=== PATIENT | female | born 1955 | race Two or more races ===

== ENCOUNTER → 2021-05-28 10:27 | Outpatient (CLI) | payer OTHER | END | disposition home or self-care (01) | LOC: LAB 10:27 | PROVIDERS: ATTEND Radiology Diagnostic Radiology | DX: Z00.00 Encounter for general adult medical examination without abnormal findings (principal); M54.16 Radiculopathy, lumbar region ==

== ENCOUNTER 2021-05-28 12:29 | Outpatient (CLI) | payer OTHER | END 2021-05-28 12:35 | disposition home or self-care (01) | LOC: MRI 12:29 | PROVIDERS: ATTEND Internal Medicine Cardiovascular Disease | DX: M51.37 Other intervertebral disc degeneration, lumbosacral region (principal); M54.16 Radiculopathy, lumbar region | CPT/HCPCS: 72158; A9575; 72149 ==

== ENCOUNTER → 2022-06-08 | Outpatient (CLI) | payer OTHER ==
[~2022-06-08] MED LIST: DICLOFENAC POTA25 M1 PO; DICLOFENAC SODI75 MG PO
== END | disposition home or self-care (01) ==
LOC: MRI 12:28
PROVIDERS: ATTEND Emergency Medicine
DX: M54.12 Radiculopathy, cervical region (principal)
CPT/HCPCS: 72141

== ENCOUNTER 2022-10-10 13:24 | Emergency (ER) | payer OTHER ==
[~2022-10-10] VITALS: Ht 157.5 cm; Wt 56.2 kg
[2022-10-10] MEDS ORDERED: EZETIMIBE10 MG (13:48)
[2022-10-10] MEDS ORDERED: METAXALONE800 MG PO (19:10)
[2022-10-10] MEDS ORDERED: MEDROLPACK PO (19:10)
== END 2022-10-10 19:15 | disposition home or self-care (01) ==
LOC: ER 13:24
DX: M54.2 Cervicalgia (principal); M25.519 Pain in unspecified shoulder; M19.09 Primary osteoarthritis, other specified site; M62.838 Other muscle spasm; F41.9 Anxiety disorder, unspecified; M48.00 Spinal stenosis, site unspecified; M47.812 Spondylosis without myelopathy or radiculopathy, cervical region

== ENCOUNTER 2024-05-15 11:02 | Inpatient (IN) | payer OTHER ==
[~2024-05-15] VITALS: Ht 162.6 cm; Wt 56.2 kg
[~2024-05-15 11:02] MED LIST changes: +EZETIMIBE10 MG; +MEDROLPACK PO; +METAXALONE800 MG PO
[2024-05-15] MEDS ORDERED: LOSARTAN POTASS50 MG PO (11:34)
[2024-05-15] MEDS ORDERED: ATORVASTATIN CA10 MG PO (11:34)
--- NOTE | 2024-05-15 11:36 | NUR ---
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
[2024-05-15] MEDS ORDERED: ONDANSETRON HCL 2 MG/ML VIAL IV ONE (14:30)
[2024-05-15] MEDS ORDERED: MORPHINE SULFATE 4 MG/ML VIAL IV ONE (14:30)
[2024-05-15] MEDS ORDERED: FAMOTIDINE/PF 20 MG/2 ML VIAL IV ONE (14:30)
[2024-05-15] MEDS ORDERED: 0.9 % SODIUM CHLORIDE 500 ML IV ONE (14:30)
[2024-05-15 15:30] LABS: HEMATOCRIT 29.3 % (36.0-45.00); MEAN CORPUSCULAR HEMOGLOBIN 34.2 pg (27.00-32.0); MEAN CORPUSCULAR HGB CONC 34.2 g/dl (32.0-36.0); PLATELET COUNT 280 K/uL (150-450); RED BLOOD COUNT 2.93 M/uL (4.00-6.00); RED CELL DISTRIBUTION WIDTH 12.9 % (11.5-14.5)
[2024-05-15 15:38] LABS: PH,URINE 6.5 (5.0-8.0); URINE APPEARANCE Clear; URINE BILIRRUBIN Negative (NEGATIVE); URINE BLOOD Small; URINE COLOR Yellow; URINE GLUCOSE Negative (NEGATIVE); URINE KETONE Trace (NEGATIVE); URINE LEUKOCYTE Negative; URINE NITRATE Negative; URINE PROTEIN Negative (NEGATIVE); URINE UROBILINOGEN 0.2 E.U./dl
[2024-05-15 15:41] LABS: URINE BACTERIA 11.3 uL (0.0-1933)
[2024-05-15 15:46] LABS: URINE EPITHELIAL CELLS 0.7 uL (0.0-38.8); URINE WBC 1.6 uL (0.0-23.2)
--- NOTE | 2024-05-15 15:55 | NUR ---
PTE FEMENINA EVALUADA POR KRISTAL LIND. SE ORIENTA SOBRE ORDENES DE [place] REFIERE COMPRENDER. SE COLECTAN MUESTRAS DE LABORATORIOS Y SE CANALIZA VENA BAJO MEDIDAS ASEPTICAS. SE ADMINISTRAN MEDICAMENTOS, BAJO MEDIDAS ASEPTICAS. SE NOTIFICA A RADIOLOGIA CT PENDIENTE.
[2024-05-15 16:05] LABS: ALBUMIN 3.9 gm/dL (3.4-5.0); BILIRUBIN TOTAL 0.62 mg/dL (0.3-1.2); CALCIUM 9.3 mg/dL (8.5-10.1); CREATININE SERUM 0.79 mg/dL (0.55-1.02); GFR 71.74; GLOBULINA 4.7 G/DL (2.4-3.5); POTASSIUM 3.7 mEq/L (3.5-5.1); TOTAL PROTEIN 8.6 gm/dL (6.4-8.2)
[2024-05-15] MEDS ORDERED: PIPERACILLIN/TAZOBACTAM SODIUM 3.375 GM VIAL IV ONE ×2 (20:00→23:45)
[2024-05-16] MEDS ORDERED: DEXTROSE 5 %-0.45 % SOD CHLORD 1,000 ML IV SCH (00:30)
[2024-05-16] MEDS ORDERED: levoFLOXacin IN DEXTROSE 5 % 150 ML IV SCH ×2 (00:44→21:00)
[2024-05-16] MEDS ORDERED: FAMOTIDINE/PF 20 MG/2 ML VIAL IV SCH (00:45)
[2024-05-16] MEDS ORDERED: HYOSCYAMINE SULFATE 0.125 MG TAB.SUBL SL PRN (00:45)
[2024-05-16] MEDS ORDERED: METRONIDAZOLE/SODIUM CHLORIDE 100 ML IV SCH (01:00)
[2024-05-16 02:10] VITALS: BP 138/86
[2024-05-16 09:42] VITALS: BP 118/64; O2SAT 99
[2024-05-16 14:18] LABS: FOLIC ACID > 20.00 ng/ml (4.78-20)
[2024-05-16 18:40] VITALS: BP 131/66
[2024-05-17 01:00] VITALS: BP 104/55
[2024-05-17 07:03] LABS: TSH 2.83 uIU/mL (0.358-3.74)
[2024-05-17 09:00] VITALS: BP 122/70; O2SAT 98
[2024-05-17 10:37] LABS: ob POSITIVE (NEGATIVE)
[2024-05-17 12:36] LABS: FECAL LEUKOCYTES NEGATIVE (NEGATIVE); ob POSITIVE (NEGATIVE)
[2024-05-17 17:53] VITALS: BP 160/74; O2SAT 98
[2024-05-17] MEDS ORDERED: SIMETHICONE 125 MG CAPSULE PO SCH (20:01)
[2024-05-17] MEDS ORDERED: SODIUM CHLORIDE 0.45 % 1,000 ML IV SCH (20:15)
[2024-05-18 01:37] VITALS: BP 133/72
[2024-05-18 06:53] LABS: HEMATOCRIT 24.5 % (36.0-45.00); MEAN CELL VOLUME 100.1 fL (80.00-100.00); MEAN CORPUSCULAR HEMOGLOBIN 35.1 pg (27.00-32.0); PLATELET COUNT 224 K/uL (150-450); RED BLOOD COUNT 2.45 M/uL (4.00-6.00); RED CELL DISTRIBUTION WIDTH 12.9 % (11.5-14.5)
[2024-05-18 07:02] LABS: HEMOGLOBIN 8.6 g/dL (12.0-15.00)
[2024-05-18 07:14] LABS: ALBUMIN 3.2 gm/dL (3.4-5.0); BILIRUBIN TOTAL 0.41 mg/dL (0.3-1.2); CALCIUM 8.6 mg/dL (8.5-10.1); CREATININE SERUM 0.9 mg/dL (0.55-1.02); GFR 61.72; GLOBULINA 3.3 G/DL (2.4-3.5); POTASSIUM 3.9 mEq/L (3.5-5.1); TOTAL PROTEIN 6.5 gm/dL (6.4-8.2)
[2024-05-18] MEDS ORDERED: LOSARTAN POTASSIUM 50 MG TABLET PO SCH (09:00)
[2024-05-18] MEDS ORDERED: FAMOtidine 20 MG TABLET PO SCH (09:00)
[2024-05-18] MEDS ORDERED: LACTOBACILLUS ACIDOPHILUS 1 CAP CAP PO SCH (09:00)
[2024-05-18 09:51] VITALS: BP 127/68; O2SAT 97
[2024-05-18] MEDS ORDERED: PANTOPRAZOLE SODIUM 40 MG TABLET.DR PO SCH (17:00)
[2024-05-18 18:21] VITALS: BP 165/73; O2SAT 98
[2024-05-18] MEDS ORDERED: SOD FERRIC GLUC COMPLX/SUCROSE 62.5 MG in 0.9 % SODIUM CHLORIDE 50 ML IV SCH (18:25)
[2024-05-19 00:52] VITALS: BP 116/65; O2SAT 97
[2024-05-19 10:11] VITALS: BP 153/77; O2SAT 97
[2024-05-19 18:15] VITALS: BP 131/71
[2024-05-20 02:21] VITALS: BP 124/68
[2024-05-20 09:52] VITALS: BP 110/67; O2SAT 99
[2024-05-20 20:11] VITALS: BP 140/71
[2024-05-21 01:42] VITALS: BP 107/63
[2024-05-21 08:57] VITALS: BP 125/72
[2024-05-21] MEDS ORDERED: HYOSCYAMINE0.125 M1 SL (18:11)
[2024-05-21] MEDS ORDERED: LEVOFLOXACIN750 MG PO (18:11)
[2024-05-21] MEDS ORDERED: INTEGRA PLUS C1 EACH PO (18:12)
[2024-05-21] MEDS ORDERED: LOSARTAN POTASS50 MG PO (18:13)
[2024-05-21] MEDS ORDERED: PANTOPRAZOLE SO40 MG PO (18:14)
[2024-05-21] MEDS ORDERED: FAMOTIDINE20 MG PO (18:14)
[2024-05-21] MEDS ORDERED: SIMETHICONE125 M1 PO (18:15)
[2024-05-21] MEDS ORDERED: INTESTINEX680 M1 PO (18:15)
[2024-05-22] MEDS ORDERED: levoFLOXacin 750 MG TABLET PO SCH (09:00)
[2024-05-22] MEDS ORDERED: IRON FUM,PS/FOLIC/BCOMP,C NO.9 1 CAP CAPSULE PO SCH (09:00)
== END 2024-05-21 18:38 | disposition home or self-care (01) | DRG 392 ==
LOC: ER 11:02 → MEDJ 05-16 00:42
PROVIDERS: Nurse Practitioner Family; ADMIT Internal Medicine Cardiovascular Disease; ATTEND Internal Medicine Cardiovascular Disease
DX: K57.30 Diverticulosis of large intestine without perforation or abscess without bleeding (principal); K62.5 Hemorrhage of anus and rectum; K52.9 Noninfective gastroenteritis and colitis, unspecified; D64.9 Anemia, unspecified; I10 Essential (primary) hypertension

== ENCOUNTER 2024-12-28 07:42 | Emergency (ER) | payer OTHER ==
[~2024-12-28] VITALS: Ht 154.9 cm; Wt 72.6 kg
[~2024-12-28 07:42] MED LIST changes: +ATORVASTATIN CA10 MG PO; +FAMOTIDINE20 MG PO; +HYOSCYAMINE0.125 M1 SL; +INTEGRA PLUS C1 EACH PO; +INTESTINEX680 M1 PO; +LEVOFLOXACIN750 MG PO; +LOSARTAN POTASS50 MG PO; +PANTOPRAZOLE SO40 MG PO; +SIMETHICONE125 M1 PO
[2024-12-28] MEDS ORDERED: ADULT LOW DOSE81 M1 PO (07:51)
[2024-12-28] MEDS ORDERED: LIPITOR20 MG PO (07:51)
[2024-12-28] MEDS ORDERED: ZETIA10 MG PO (07:51)
[2024-12-28] MEDS ORDERED: KETOROLAC TROMETHAMINE 15 MG VIAL IV STA (08:59)
[2024-12-28] MEDS ORDERED: ORPHENADRINE CITRATE 30 MG/ML AMPUL IM STA (08:59)
[2024-12-28] MEDS ORDERED: METHYLPREDNISOLONE SOD SUCC 40 MG VIAL IV STA (08:59)
[2024-12-28] MEDS ORDERED: KETOROLAC TROMETHAMINE 30 MG VIAL ONE (09:03)
[2024-12-28] MEDS ORDERED: METHYLPREDNISOLONE SOD SUCC 40 MG VIAL ONE (09:04)
[2024-12-28] MEDS ORDERED: ORPHENADRINE CITRATE 30 MG/ML AMPUL ONE (09:04)
[2024-12-28] MEDS ORDERED: WATER FOR INJ.,BACTERIOSTATIC 30 ML VIAL IJ ONE (09:06)
[2024-12-28] MEDS ORDERED: MEDROL4 MG PO (11:17)
[2024-12-28] MEDS ORDERED: METAXALONE400 MG PO (11:17)
[2024-12-28] MEDS ORDERED: CELEBREX200MG PO (11:17)
== END 2024-12-28 12:22 | disposition home or self-care (01) ==
LOC: ER 07:42
DX: M54.2 Cervicalgia (principal); I10 Essential (primary) hypertension
CPT/HCPCS: 72040; 96365; 96372; 99283; J1885; J2360; J3490